=== PATIENT | male | born 1965 | race Native Hawaiian/Other Pacific Islander ===

== ENCOUNTER 2024-04-22 11:44 | Emergency (ER) | payer MEDICAID, SELFPAY ==
[2024-04-22 13:17] VITALS: BP 154/100; PULSE 98; RESP 18; TEMP 36.6; O2SAT 99
--- NOTE | 2024-04-22 13:48 | EKG_ITS ---
[facility] Test Date: 2024-04-22 Pat Name: KARISSA ISRAEL Department: Room: - Gender: Male Engineer Systems: : 1965 Requested By: Vijaya Molina Order Number: [id number] Reading MD: Vijaya Molina Measurements Intervals [place] Rate: 96 P: 57 ND: 201 QRS: -83 QRSD: 92 T: 79 QT: 368 QTc: 466 Interpretive Statements SINUS RHYTHM LEFT ATRIAL ENLARGEMENT [-0.15mV P WAVE IN V1/V2] MARKED LEFT AXIS DEVIATION [QRS AXIS < -30] S1-S2-S3 PATTERN, CONSISTENT WITH PULMONARY DISEASE, RVH, OR NORMAL VARIANT Compared to ECG 04/11/2023 16:56:05 Incomplete right bundle-branch block no longer present T-wave abnormality no longer present /store/S0/[id number]
--- NOTE | 2024-04-22 13:48 | XR_ITS ---
Examination: PA lateral chest 2 views TECHNIQUE: Upright PA lateral chest 2 views Exam date and time: April 22, 2024 1358 hours Comparison April 11, 2023 INDICATIONS: Difficulty breathing this week. FINDINGS: Early CHF Moderate retrocardiac contour Prominent vascular congestion Early septal edema at the lung bases IMPRESSION: Early CHF
--- NOTE | 2024-04-22 13:48 | XR_ITS ---
Examination: CT abdomen and pelvis without contrast. Coronal 3-D reconstructions. Sagittal 2-D reconstructions. Date and time of exam:April 22, 2024 1532 hours INDICATIONS: Body bloating one week, with swollen testicles CTDI: vol (mGy): 8.36 DLP: (mGycm): 4 Technique: Axial images of the abdomen have been obtained, 3 mm slice thickness Intravenous contrast material has not been administered. Low dose protocols were performed. One or more of the following dose reduction techniques were used; automated exposure control, adjustment of the mA and/or KV according to patient size, use of iterative reconstruction technique. Findings: Moderate enlargement cardiac contour Trace pericardial effusion, 5.6 mm anteriorly Pulmonary mass indistinct margins left lower lobe, 32 mm Liver irregular in contour with diffuse fatty infiltration Mild ascites No gallstones Gallbladder wall is thickened, but again the patient has ascites Spleen is not enlarged No pancreatic mass Moderate right renal parenchymal scar formation No hydronephrosis or ureteral calculi Normal appendix No bowel obstruction Anasarca Transverse prostate dimension 3.8 cm No bladder mass or bladder calculi Fat-containing right inguinal hernia Moderate osteopenia Mild to moderate diffuse lumbar disc narrowing IMPRESSION: Moderate enlargement cardiac contour with trace pericardial effusion 32 mm pulmonary mass left lower lobe, differential would include lung carcinoma, pulmonary metastatic disease consider CT chest without intravenous contrast follow-up Cirrhosis Mild ascites Anasarca Gallbladder wall is thickened which may be secondary to the patient's ascites Moderate right renal parenchymal scar formation Normal appendix No bowel junction
--- NOTE | 2024-04-22 13:48 | PD.EDRME ---
Rapid Medical Screening Exam [facility] Arrival date/time: 04/22/24 11:44 Chief Complaint: General Adult/Misc Complain Vital signs: Vital Signs Temperature 97.8 F 04/22/24 13:17 Pulse Rate 98 04/22/24 13:17 Respiratory Rate 18 04/22/24 13:17 Blood Pressure 154/100 H 04/22/24 13:17 Pulse Oximetry (%) 99 04/22/24 13:17 Oxygen Delivery Method Room Air 04/22/24 13:17 [facility] Narrative: 58-year-old patient with history of high blood pressure and CHF presents emergency department with complaint of swollen testicles, shortness of breath and bilateral lower leg swelling x 4 days. On physical exam there is pitting edema and swelling of lower legs from the foot to the thighs.
[2024-04-22 15:28] LABS: Basophils % (Auto) 1 % (0-2.5); Eosinophils # (Auto) 0.1 Thou/mm3 (0.0-0.5); Eosinophils % (Auto) 2 % (0-10); Hematocrit 48.8 % (41.0-53.0); Hemoglobin 15.5 g/dL (13.5-16.0); Immature Granulocytes % (Auto) 0 % (0-0); Lymphocytes # (Auto) 1.1 Thou/mm3 (1.0-4.8); Lymphocytes % (Auto) 34 % (10-50); Mean Corpuscular HGB Conc 31.8 g/dl (31.0-37.0); Mean Corpuscular Hemoglobin 30.1 pg (25.0-35.0); Mean Corpuscular Volume 95 fL (80-100); Monocytes # (Auto) 0.3 Thou/mm3 (0.0-0.8); Monocytes % (Auto) 10 % (0-12); Neutrophils # (Auto) 1.8 Thou/mm3 (1.8-7.7); Neutrophils % (Auto) 54 % (37-80); Nucleated Red Blood Cell % 0 /100 WBC (0); Platelet Count 181 Thou/mm3 (140-440); RDW Standard Deviation 58.1 fL (35.1-43.9); Red Blood Count 5.15 Miln/mm3 (4.50-5.90); White Blood Count 3.3 Thou/mm3 (3.8-10.6)
[2024-04-22 16:21] LABS: Alanine Aminotransferase 53 U/L (10-49); Albumin, Serum 3.4 gm/dL (3.5-5.0); Albumin/Globulin Ratio 0.8 (1.2-2.2); Alkaline Phosphatase 218 U/L (46-116); Anion Gap 10 (7-16); Aspartate Amino Transferase 58 U/L (0-34); B-Type Natriuretic Peptide 2935 pg/mL (0-100); BUN/Creatinine Ratio 18 Ratio (12-20); Blood Urea Nitrogen 33 mg/dL (9-23); Calcium 8.3 mg/dL (8.3-10.6); Calcium (Corrected) 8.8 mg/dL (8.5-10.1); Carbon Dioxide 18.6 mMol/L (20.0-31.0); Chloride 111 mMol/L (98-107); Creatinine (Component) 1.8 mg/dL (0.6-1.3); Globulin 4.3 gm/dL (2.3-3.5); Glucose 86 mg/dL (74-106); Lipase 121 U/L (12-53); Osmolality,Calculated 285 (275-295); Potassium 4.6 mMol/L (3.4-5.1); Sodium 140 mMol/L (136-145); Total Protein 7.7 gm/dL (5.7-8.2); eGFR 43 See Note
[2024-04-22 16:23] LABS: Troponin I 0.196 ng/mL (0.0-0.045)
--- NOTE | 2024-04-22 18:51 | PC.NURSE ---
PT CAME TO TRIAGE DESK AND YELLED AT THE NURSE, I'M CHECKING OUT AND LEAVING. I'VE BEEN WAITING ALL DAY AND NO ONE IS DOING ANYTHING. APOLOGIZED TO PT FOR THE WAIT. PT WANTING NURSE TO PRESCRIBE LASIX PILLS, AND PT INFORMED THAT THE PROVIDER WOULD HAVE TO PRESCRIBE ANY MEDICATION AND THEY WONT BE ABLE TO DO THAT IF HE LEAVES. PT SIGNED AMA FORM AND WALKED OUT
== END 2024-04-22 18:51 | disposition left against medical advice (07) ==
LOC: SERX 12:41
PROVIDERS: Physician Assistant; Emergency Provider Emergency Medicine
DX: N50.89 Other specified disorders of the male genital organs (principal); R06.02 Shortness of breath; M79.89 Other specified soft tissue disorders; R94.31 Abnormal electrocardiogram [ECG] [EKG]; I50.9 Heart failure, unspecified; Z53.29 Procedure and treatment not carried out because of patient's decision for other reasons
CPT/HCPCS: 36415; 71046; 74176; 80053; 83690; 83880; 84484; 85025; 93005; 99281

== ENCOUNTER 2024-04-23 03:55 | Emergency (ER) | payer MEDICAID, SELFPAY ==
[2024-04-23 03:58] VITALS: BMI 26.7
[2024-04-23 04:33] VITALS: BP 141/96; PULSE 76; RESP 19; TEMP 36.9; O2SAT 97
--- NOTE | 2024-04-23 04:35 | PD.EDRME ---
Rapid Medical Screening Exam RME Arrival date/time: 04/23/24 03:55 58 year old male present to Ed for c/o of lower leg swelling I have greeted and performed a focused initial assessment of this patient. A comprehensive ED assessment and evaluation of the patient, analysis of all test results, and completion of the medical decision making process will be conducted by additional ED providers. Chief Complaint: Urogenital-Male Time Seen by Provider: 04/23/24 03:58 Vital signs: Vital Signs Temperature 98.4 F 04/23/24 04:33 Pulse Rate 76 04/23/24 04:33 Respiratory Rate 19 04/23/24 04:33 Blood Pressure 141/96 H 04/23/24 04:33 Pulse Oximetry (%) 97 04/23/24 04:33 Oxygen Delivery Method Room Air 04/23/24 04:33
--- NOTE | 2024-04-23 08:07 | XR_ITS ---
Examination: PA chest single view TECHNIQUE: Upright PA chest single view Exam date and time: April 23, 2022 0830 hours Comparison April 22, 2024 INDICATIONS: Chest pain today unable to urinate FINDINGS: Moderate enlargement cardiac contour Opacity left base obscuring detail left hemidiaphragm Mild to moderate vascular congestion The osseous structures are intact IMPRESSION: Moderate enlargement cardiac contour Scarring versus pneumonia left base, recommend lateral chest view follow-up
--- NOTE | 2024-04-23 08:07 | EKG_ITS ---
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
[2024-04-23 08:30] VITALS: BP 150/103; PULSE 93; RESP 20; TEMP 36.6; O2SAT 99
[2024-04-23 08:50] LABS: Basophils % (Auto) 1 % (0-2.5); Eosinophils # (Auto) 0.1 Thou/mm3 (0.0-0.5); Eosinophils % (Auto) 3 % (0-10); Hematocrit 45.1 % (41.0-53.0); Hemoglobin 14.2 g/dL (13.5-16.0); Immature Granulocytes % (Auto) 0 % (0-0); Immature Granulocytes Auto 0.01 Thou/mm3 (0.00-0.00); Lymphocytes # (Auto) 0.8 Thou/mm3 (1.0-4.8); Lymphocytes % (Auto) 28 % (10-50); Mean Corpuscular HGB Conc 31.5 g/dl (31.0-37.0); Mean Corpuscular Hemoglobin 30.3 pg (25.0-35.0); Mean Corpuscular Volume 96 fL (80-100); Monocytes # (Auto) 0.3 Thou/mm3 (0.0-0.8); Monocytes % (Auto) 11 % (0-12); Neutrophils # (Auto) 1.7 Thou/mm3 (1.8-7.7); Neutrophils % (Auto) 56 % (37-80); Nucleated Red Blood Cell % 0 /100 WBC (0); Platelet Count 169 Thou/mm3 (140-440); RDW Standard Deviation 59.7 fL (35.1-43.9); Red Blood Count 4.68 Miln/mm3 (4.50-5.90)
[2024-04-23 08:54] LABS: B-Type Natriuretic Peptide > 3280 pg/mL (0-100)
[2024-04-23 08:58] LABS: Partial Thromboplastin Time 28.3 Seconds (22.0-36.0)
[2024-04-23 09:01] LABS: Alanine Aminotransferase 61 U/L (10-49); Albumin, Serum 3.1 gm/dL (3.5-5.0); Albumin/Globulin Ratio 0.8 (1.2-2.2); Alkaline Phosphatase 210 U/L (46-116); Anion Gap 7 (7-16); Aspartate Amino Transferase 73 U/L (0-34); BUN/Creatinine Ratio 17 Ratio (12-20); Bilirubin,Total 0.7 mg/dL (0.3-1.2); Blood Urea Nitrogen 31 mg/dL (9-23); Calcium 8.3 mg/dL (8.3-10.6); Carbon Dioxide 20.5 mMol/L (20.0-31.0); Chloride 114 mMol/L (98-107); Creatinine (Component) 1.8 mg/dL (0.6-1.3); Estimated Creatinine Clearance 43.3 mL/min (>60); Globulin 3.8 gm/dL (2.3-3.5); Glucose 81 mg/dL (74-106); Lipase 142 U/L (12-53); Magnesium 1.9 mg/dL (1.6-2.6); Osmolality,Calculated 286 (275-295); Potassium 4.6 mMol/L (3.4-5.1); Sodium 141 mMol/L (136-145); Total Protein 6.9 gm/dL (5.7-8.2); eGFR 43 See Note
[2024-04-23 09:02] LABS: Troponin I 0.159 ng/mL (0.0-0.045)
[2024-04-23 09:43] VITALS: BP 146/104; PULSE 81
[2024-04-23] MEDS: FUROSEMIDE INJ 10 MG/ML 4ML VIAL 40 MG IVP (09:43)
--- NOTE | 2024-04-23 13:00 | EDNOTE_ITS ---
<Statement entered by Yamila Veliz MD - 04/30/24 14:47> As co-signing physician, I was present and available for consult prn. I concur with the plan and care as documented by the midlevel provider. ED General RME/HPI General Chief complaint: Urogenital-Male Stated complaint: bloated history of CHF Time Seen by Provider: 04/23/24 03:58 Arrival date/time: 04/23/24 03:55 CC: Lower extremity swelling HPI ongoing for the past month after the patient stopped taking his Lasix because he not get his insurance to approve the renewal and did not have the money to pay for the drugs out right. Patient denies any shortness of breath. At the time of the exam at 1 PM in the afternoon the patient been here at 8 hours after being given IV Lasix the patient states he is peeing a gallon . The patient states he feels much better. Denies any chest pain shortness of breath or difficulty breathing. RME / HPI RME / HPI narrative: 04/23/24 03:55 58 year old male present to Ed for c/o of lower leg swelling I have greeted and performed a focused initial assessment of this patient. A comprehensive ED assessment and evaluation of the patient, analysis of all test results, and completion of the medical decision making process will be conducted by additional ED providers. Related Data Home Medications ?Medication ?Instructions ?Recorded ?Confirmed abacavir 600 mg-dolutegravir 50 1 tab PO QDAY 10/17/22 10/18/22 mg-lamivudine 300 mg tablet (Triumeq) albuterol sulfate 2.5 mg/3 mL 2.5 mg inhalation Q6H PRN 10/17/22 10/18/22 (0.083 %) solution for nebulization Shortness Of Breath Previous Rx's ?Medication ?Instructions ?Recorded carvedilol 3.125 mg tablet 3.125 mg PO BID #60 tabs 10/20/22 spironolactone 25 mg tablet 25 mg PO BID #60 tabs 10/20/22 tamsulosin 0.4 mg capsule 0.4 mg PO QDAY #30 caps 10/20/22 furosemide 40 mg tablet 40 mg PO QDAY #30 tabs 10/21/22 furosemide 40 mg tablet (Lasix) 40 mg PO QAM #30 tabs 04/23/24 potassium chloride 10 mEq oral 10 meq PO QDAY #15 ea 04/23/24 packet Allergies Allergy/AdvReac Type Severity Reaction Status Date / Time No Known Allergies Allergy Verified 04/22/24 11:45 Review of Systems Review of Systems Narrative Review of Systems: GEN: No fever, no chills, no weight loss EYES: No discharge, no visual changes, no pain HEENT: No ear pain, no congestion, no sore throat PULM: No shortness of breath, no cough, no congestion CV: No chest pain, no dyspnea on exertion, no palpitations GI: No nausea, no vomiting, no diarrhea, no pain, no constipation : No frequency, no urgency, no dysuria MUSC/SKEL: No joint pain, no back pain,+ lower extremity edema SKIN: No rash PSYCH: No hallucinations, no depression HEME/LYMPH: No easy bleeding or bruising tendencies NEURO: No weakness, no headache Past Medical History Past Medical History NEUROLOGIC: Positive Neurological Disorders and Migraine CARDIAC: Positive Cardiac Disorders, Congestive Heart Failure (2022 new diagnosis) and Hypertension RESPIRATORY: Positive Asthma (mild) and Pneumonia; Negative Chronic Obstructive Pulmonary Disease (COPD) GASTROINTESTINAL: Positive Gastrointestinal Disorders and Gastroesophageal Reflux Disease GENITOURINARY: Positive Genitourinary Disorders and Benign Prostatic Hyperplasia; Negative Renal Disease MUSCULOSKELETAL: Positive Musculoskeletal Disorders ENDOCRINE: Negative Endocrine Disorders, Diabetes Mellitus Type 1 or Diabetes Mellitus Type 2 HEMATOLOGIC: Negative Blood Disorders PSYCHO/SOCIAL: Positive Depression OTHER HISTORY: Positive Autoimmune Disease and Human Immunodeficiency Virus (HIV); Negative Cancer Family History FAMILY HISTORY: Positive Family Psychiatric Problems (brother), Family Respiratory Disorders, Family Cardiac Disorders (htn, heart disease), Family Cancer (lung cancer, father, brother) and Family Surgery; Negative Family Gastrointestinal Problems or Family Anesthesia Reaction Social History SMOKING STATUS: Former smoker SUBSTANCE USE: marijuana and methamphetamine ED Exam Narrative Physical exam: [General: Obese not in any acute distress Head normocephalic HEENT: Within acceptable limits Neck is supple nontender Chest equal chest rise nontender to palpation Respiratory: Clear to auscultation no wheezes crackles or rubs CV: Rate rhythm is regular no murmurs rubs or clicks Abdomen is distended secondary to body habitus soft nontender no masses positive bowel sounds all 4 quadrants Back: No CVA tenderness no spinous process tenderness from cervical spine thoracic and lumbar spine Skin: Intact no petechiae rash induration ulceration or crepitus Extremities: Moving all extremity against resistance cap refill less than 2 seconds neurosensory intact. Lower extremity edema nonpitting, no tenderness in the calves. Neuro: Awake alert oriented x3 Glascow coma 15 no focal deficits] Course Quality Measures none Orders Category Date Time Status Multi Operation Machine Operator NOW Care 04/23/24 08:07 Active Catheter [Urinary Catheter] QS Care 04/23/24 04:36 Active EKG (ED ONLY) *Do not use* NOW Care 04/23/24 08:07 Completed Insert IV NOW Care 04/23/24 09:39 Active EKG (ED Only) Stat Exams 04/23/24 08:07 Draft XR chest 1V portable Stat Exams 04/23/24 08:07 Completed B-Type Natriuretic Peptide Stat Lab 04/23/24 07:24 Completed CBC Stat Lab 04/23/24 07:24 Completed Comprehensive Metabolic Panel Stat Lab 04/23/24 07:24 Completed Lipase Stat Lab 04/23/24 07:24 Completed Magnesium Stat Lab 04/23/24 07:24 Completed Partial Thromboplastin Time Stat Lab 04/23/24 07:24 Completed Prothrombin Time with INR Stat Lab 04/23/24 07:24 Completed Troponin I Stat Lab 04/23/24 07:24 Completed Furosemide Inj [Lasix Inj] Med 04/23/24 04:36 Discontinued 40 mg IVP X1 ONE KCL 10% Liq UDC 15 ML Med 04/23/24 12:48 Discontinued 40 meq GT X1 ONE KCL 10% Liq UDC 15 ML Med 04/23/24 12:48 Discontinued 40 meq GT X1 ONE Vital Signs Vital signs: Vital Signs Temperature 98.4 F 04/23/24 04:33 Pulse Rate 76 04/23/24 04:33 Respiratory Rate 19 04/23/24 04:33 Blood Pressure 141/96 H 04/23/24 04:33 Pulse Oximetry (%) 97 04/23/24 04:33 Oxygen Delivery Method Room Air 04/23/24 04:33 [facility] Patient data External records reviewed:: [facility] previous records Clinical information provided by:: patient Social determinants that could affect healthcare access:: none Patient has the following chronic illnesses:: Congestive heart failure hypertension How is presenting disease/condition affected by chronic disease/condition?: u neffected by Evaluation data The following diagnostics were reviewed and interpreted by me:: lab results and radiology exam(s) Lab and/or radiology exams considered but not ordered:: CBC shows no acute leukocytosis anemia thrombocytopenia Coags were within acceptable limits CMP shows a potassium of 3.0 no other significant electrolyte imbalances BUN of 30 and 1 creatinine of 1.8 both commensurate with prior lab draws. No significant lecture light imbalances or renal impairment. Mild transaminitis Troponin of 0.159 commiserate with other troponins drawn in the past, BNP is greater than 30-50 again commensurate with other BMPs. Interpretation Summary: Patient is ambulating without complication no shortness of breath normal respiration rate normal heart rate and stable blood pressure. At this time patient be discharged home with a short refill of his prednisone as well as a prescription for potassium. Medications Medications considered but not ordered:: None Medication administrations:: Medication Administration History Discontinued Medications Furosemide (Furosemide Inj 10 Mg/Ml 4ml Vial) 40 mg IVP X1 ONE Stop: 04/23/24 04:37 Last Admin: 04/23/24 09:43 Dose: 40 mg Documented By: DB Potassium Chloride (Potassium Chloride 10% 20 Meq/15 Ml Udc) 40 meq GT X1 ONE Stop: 04/23/24 12:49 Potassium Chloride (Potassium Chloride 10% 20 Meq/15 Ml Udc) 40 meq GT X1 ONE Stop: 04/23/24 12:49 None Consultations Consultation(s) initiated? (list below): No Diagnosis Differential Diagnosis ED Complaint MDM: CHF COPD ACS [place] Most likely diagnosis given after review of the tests above:: CHF, medication noncompliance lower extremity edema Admission Indicated Admission indicated?: not indicated Explain why admission is indicated or not indicated:: Stable to discharge Admission Request Was there a request for admission?: No Disposition Plan Disposition Plan: Discharge Discharge Attestation Discharge Attestation: The patient and all family members were given an opportunity to ask questions and understood the discharge instructions. Discharge instructions specifically effects, indications for sooner follow up or return to the emergency department, and the expected course of current diagnosis. Patient condition: Stable Medical Decision Making Differential Diagnosis Differential Diagnosis: CHF COPD ACS [place] Lab Data 04/23/24 07:24 04/23/24 07:24 Labs: Lab Results 04/23/24 Range/Units 07:24 WBC 3.0 L (3.8-10.6) Thou/mm3 RBC 4.68 (4.50-5.90) Miln/mm3 Hgb 14.2 (13.5-16.0) g/dL Hct 45.1 (41.0-53.0) % MCV 96 (80-100) fL MCH 30.3 (25.0-35.0) pg MCHC 31.5 (31.0-37.0) g/dl RDW Std Deviation 59.7 H (35.1-43.9) fL Plt Count 169 (140-440) Thou/mm3 Neut % (Auto) 56 (37-80) % Lymph % (Auto) 28 (10-50) % Ritchie % (Auto) 11 (0-12) % Eos % (Auto) 3 (0-10) % Baso % (Auto) 1 (0-2.5) % Neut # (Auto) 1.7 L (1.8-7.7) Thou/mm3 Lymph # (Auto) 0.8 L (1.0-4.8) Thou/mm3 Ritchie # (Auto) 0.3 (0.0-0.8) Thou/mm3 Eos # (Auto) 0.1 (0.0-0.5) Thou/mm3 Baso # (Auto) 0.0 (0.0-0.2) Thou/mm3 Immature Gran # (Auto) 0.01 H (0.00-0.00) Thou/mm3 Absolute Nucleated RBC 0.00 (0.00-0.00) Thou/mm3 Immature Gran % 0 (0-0) % Nucleated RBC % 0 (0) /100 WBC PT 11.0 (9.0-12.2) Seconds INR 1.0 (0.9-1.3) APTT 28.3 (22.0-36.0) Seconds Sodium 141 (136-145) mMol/L Potassium 4.6 (3.4-5.1) mMol/L Chloride 114 H (98-107) mMol/L Carbon Dioxide 20.5 (20.0-31.0) mMol/L Anion Gap 7 (7-16) BUN 31 H (9-23) mg/dL Creatinine 1.8 H (0.6-1.3) mg/dL Estim Creat Clear Calc 43.3 L (>60) mL/min eGFR 43 L (60 - ) See Note BUN/Creatinine Ratio 17 (12-20) Ratio Glucose 81 (74-106) mg/dL Calculated Osmolality 286 (275-295) Calcium 8.3 (8.3-10.6) mg/dL Corrected Calcium 9.0 (8.5-10.1) mg/dL Magnesium 1.9 (1.6-2.6) mg/dL Total Bilirubin 0.7 (0.3-1.2) mg/dL AST 73 H (0-34) U/L ALT 61 H (10-49) U/L Alkaline Phosphatase 210 H (46-116) U/L Troponin I 0.159 H* (0.0-0.045) ng/mL B-Natriuretic Peptide > 3280 H* (0-100) pg/mL Total Protein 6.9 (5.7-8.2) gm/dL Albumin 3.1 L (3.5-5.0) gm/dL Globulin 3.8 H (2.3-3.5) gm/dL Albumin/Globulin Ratio 0.8 L (1.2-2.2) Lipase 142 H D (12-53) U/L Discharge Plan Plan Patient Disposition: HOME (Self Care) Patient condition on transfer: Stable Prescriptions/Referrals Prescriptions/Med Rec: New furosemide [Lasix] 40 mg tablet 40 mg PO QAM Qty: 30 1RF potassium chloride 10 mEq packet 10 meq PO QDAY Qty: 15 0RF No Action Triumeq 600-50-300 mg Tablet 1 tab PO QDAY albuterol sulfate 2.5 mg /3 mL (0.083 %) Solution For Nebulization 2.5 mg INHALATION Q6H PRN (Reason: Shortness Of Breath) spironolactone 25 mg Tablet 25 mg PO BID Qty: 60 0RF carvedilol 3.125 mg Tablet 3.125 mg PO BID Qty: 60 1RF tamsulosin 0.4 mg Capsule 0.4 mg PO QDAY Qty: 30 0RF furosemide 40 mg Tablet 40 mg PO QDAY Qty: 30 0RF Referrals: Srikanth Barcenas MD [Physician] - In 1 week No Primary/Family,Physician [Primary Care Provider] - In 1 week Problem List Clinical Impression: Bilateral lower extremity edema, CHF (congestive heart failure), Hypokalemia Patient/Caregiver Discharge Instructions Education Materials: ED Hypokalemia, ED Leg Swelling in Both Legs, Heart Failure Dc Additional Instructions: Take your medications as prescribed. Return to the emergency room if there is worsening shortness of breath or leg swelling in spite of the medications. Print Language: Italian Stand Alone Forms: [employer] Award Info., Patient Portal Info Letter, Work/School Release PA/YARN CONDITIONER Supervising Physician PA/YARN CONDITIONER Supervising Physician: Jose A Mata ENP
[2024-04-23] MEDS: POTASSIUM CHLORIDE 10% 20 MEQ/15 ML UDC 40 MEQ GT ×2 (13:47)
== END 2024-04-23 14:15 | disposition home or self-care (01) ==
PROVIDERS: Emergency Medicine; Emergency Provider Emergency Medicine
DX: R60.0 Localized edema (principal); I50.9 Heart failure, unspecified
CPT/HCPCS: 36415; 71045; 80053; 83690; 83735; 83880; 84484; 85025; 85610; 85730; 93005; 96374; 99284; J1940; A9270

== ENCOUNTER 2024-06-03 14:31 | Emergency (ER) | payer MEDICAID, SELFPAY ==
[2024-06-03 14:31] VITALS: BMI 23.6
[2024-06-03 14:37] VITALS: BP 157/89; PULSE 109; RESP 18; TEMP 37; O2SAT 96
--- NOTE | 2024-06-03 14:45 | PD.EDRME ---
Rapid Medical Screening [facility]am [facility] Arrival date/time: 06/03/24 14:31 58-year-old male with a history of HIV presents to the emergency room with a chief complaint of a rash to his lower back. Patient was seen at his primary care provider's office and was diagnosed with shingles and medication was sent to his pharmacy. Primary care provider's office sent him to the emergency room due to his low-grade fever. Patient also states he has not had lab work in over a year and states he was sent for an HIV viral load test. I have greeted and performed a focused initial assessment of this patient. A comprehensive ED assessment and evaluation of the patient, analysis of all test results, and completion of the medical decision making process will be conducted by additional ED providers. Chief Complaint: Skin/Abscess/Foreign Body Time Seen by Provider: 06/03/24 14:37 Vital signs: Vital Signs Temperature 98.6 F 06/03/24 14:37 Pulse Rate 109 H 06/03/24 14:37 Respiratory Rate 18 06/03/24 14:37 Blood Pressure 157/89 H 06/03/24 14:37 Pulse Oximetry (%) 96 06/03/24 14:37 Oxygen Delivery Method Room Air 06/03/24 14:37 Vital signs reviewed by provider: Yes
[2024-06-03 15:17] LABS: Basophils % (Auto) 1 % (0-2.5); Eosinophils % (Auto) 1 % (0-10); Hematocrit 42.1 % (41.0-53.0); Hemoglobin 14.1 g/dL (13.5-16.0); Immature Granulocytes % (Auto) 1 % (0-0); Immature Granulocytes Auto 0.02 Thou/mm3 (0.00-0.00); Lymphocytes # (Auto) 1.3 Thou/mm3 (1.0-4.8); Lymphocytes % (Auto) 32 % (10-50); Mean Corpuscular HGB Conc 33.5 g/dl (31.0-37.0); Mean Corpuscular Volume 90 fL (80-100); Monocytes # (Auto) 0.6 Thou/mm3 (0.0-0.8); Monocytes % (Auto) 13 % (0-12); Neutrophils # (Auto) 2.2 Thou/mm3 (1.8-7.7); Neutrophils % (Auto) 53 % (37-80); Nucleated Red Blood Cell % 0 /100 WBC (0); Platelet Count 188 Thou/mm3 (140-440); RDW Standard Deviation 49.1 fL (35.1-43.9); White Blood Count 4.1 Thou/mm3 (3.8-10.6)
[2024-06-03 15:37] LABS: Alanine Aminotransferase 54 U/L (10-49); Albumin, Serum 3.5 gm/dL (3.5-5.0); Albumin/Globulin Ratio 0.9 (1.2-2.2); Alkaline Phosphatase 165 U/L (46-116); Anion Gap 9 (7-16); Aspartate Amino Transferase 51 U/L (0-34); BUN/Creatinine Ratio 16 Ratio (12-20); Bilirubin,Total 0.7 mg/dL (0.3-1.2); Blood Urea Nitrogen 28 mg/dL (9-23); Calcium 8.6 mg/dL (8.3-10.6); Carbon Dioxide 23.1 mMol/L (20.0-31.0); Chloride 103 mMol/L (98-107); Creatinine (Component) 1.8 mg/dL (0.6-1.3); Estimated Creatinine Clearance 43.3 mL/min (>60); Glucose 113 mg/dL (74-106); Osmolality,Calculated 276 (275-295); Potassium 3.7 mMol/L (3.4-5.1); Sodium 135 mMol/L (136-145); Total Protein 7.5 gm/dL (5.7-8.2); eGFR 43 See Note
[2024-06-03 16:11] LABS: Partial Thromboplastin Time 30.7 Seconds (22.0-36.0); Prothrombin Time 10.7 Seconds (9.0-12.2)
[2024-06-03 16:32] LABS: Collection Type, Urine Clean Catch; Squamous Epithelial Cell,Urine 0 /hpf (0-5)
[2024-06-03 16:41] LABS: Bilirubin,Urine Negative (Negative); Blood,Urine 1+ (Negative); Clarity,Urine Clear (Clear/Hazy); Color,Urine Yellow (Lt Yel-Yel); Culture Indicated,Urine Not Indicated; Glucose, Urine Negative (Negative); Ketones,Urine Negative (Negative); Leukocyte Esterase,Urine Negative (Negative); Nitrite,Urine Negative (Negative); PH,Urine 6.5 (5.0-7.0); Protein,Urine 3+ (Neg - Trace); RBC,Urine 8 /hpf (0-3); Specific Gravity,Urine 1.018 (1.001-1.035); Urobilinogen,Urine Negative mg/dL (0.0-1.0); WBC,Urine 2 /hpf (0-5)
--- NOTE | 2024-06-03 17:17 | EDNOTE_ITS ---
ED General RME/HPI General Chief complaint: Skin/Abscess/Foreign Body Stated complaint: RASH TO ABD AREA, R/O SHINGLES Time Seen by Provider: 06/03/24 14:37 Arrival date/time: 06/03/24 14:31 RME / HPI RME / HPI narrative: 06/03/24 14:31 58-year-old male with a history of HIV presents to the emergency room with a chief complaint of a rash to his lower back. Patient was seen at his primary care provider's office and was diagnosed with shingles and medication was sent to his pharmacy. Primary care provider's office sent him to the emergency room due to his low-grade fever. Patient also states he has not had lab work in over a year and states he was sent for an HIV viral load test. I have greeted and performed a focused initial assessment of this patient. A comprehensive ED assessment and evaluation of the patient, analysis of all test results, and completion of the medical decision making process will be conducted by additional ED providers. DR. BUCIO MAIN ED EVALUATION 58 year old male presents to the ED sent by PCP for evaluation of fever and rash to his lower back. Reports the rash began several days ago that is accompanied by pain. Reportedly consulted with PCP today who diagnosed him with shingles and prescribed antivirals. However, because of the fever was advised to come for further evaluation. Denies sweating. Denies chest pain, cough, shortness of breath. Denies nausea, vomiting, diarrhea, constipation. Denies dysuria, urinary frequency and urgency. Related Data Previous Rx's ?Medication ?Instructions ?Recorded furosemide 40 mg tablet (Lasix) 40 mg PO QAM #30 tabs 04/23/24 gabapentin 300 mg capsule 300 mg PO BID 30 days #60 ca ps 06/03/24 prednisone 50 mg tablet 50 mg PO QDAY 5 days #5 tabs 06/03/24 valacyclovir 1 gram tablet 1,000 mg PO Q8H 10 days #30 tabs 06/03/24 Allergies Allergy/AdvReac Type Severity Reaction Status Date / Time No Known Allergies Allergy Verified 06/03/24 14:33 Review of Systems Review of Systems Narrative Review of Systems: GEN: + fever, no chills, no weight loss EYES: No discharge, no visual changes, no pain HEENT: No ear pain, no congestion, no sore throat PULM: No shortness of breath, no cough, no congestion CV: No chest pain, no dyspnea on exertion, no palpitations GI: No nausea, no vomiting, no diarrhea, no pain, no constipation : No frequency, no urgency, no dysuria MUSC/SKEL: No joint pain, no back pain SKIN: + rash with pain PSYCH: No hallucinations, no depression HEME/LYMPH: No easy bleeding or bruising tendencies NEURO: No weakness, no headache Past Medical History Past Medical History NEUROLOGIC: Positive Neurological Disorders and Migraine CARDIAC: Positive Cardiac Disorders, Congestive Heart Failure and Hypertension RESPIRATORY: Positive Asthma and Pneumonia; Negative Chronic Obstructive Pulmonary Disease (COPD) GASTROINTESTINAL: Positive Gastrointestinal Disorders and Gastroesophageal Reflux Disease GENITOURINARY: Positive Genitourinary Disorders and Benign Prostatic Hyperplasia; Negative Renal Disease MUSCULOSKELETAL: Positive Musculoskeletal Disorders ENDOCRINE: Negative Endocrine Disorders, Diabetes Mellitus Type 1 or Diabetes Mellitus Type 2 HEMATOLOGIC: Negative Blood Disorders PSYCHO/SOCIAL: Positive Depression OTHER HISTORY: Positive Autoimmune Disease and Human Immunodeficiency Virus (HIV); Negative Cancer Family History FAMILY HISTORY: Positive Family Psychiatric Problems, Family Respiratory Disorders, Family Cardiac Disorders, Family Cancer (lung cancer, father, brother) and Family Surgery; Negative Family Gastrointestinal Problems or Family Anesthesia Reaction Social History SMOKING STATUS: Never smoker SECOND HAND EXPOSURE: No SUBSTANCE USE: marijuana and methamphetamine ED Exam Narrative Physical exam: GENERAL APPEARANCE:? alert and oriented x 4, well-developed, well-nourished, no acute distress HEENT: normocephalic, atraumatic NECK: supple LUNGS: no respiratory distress, normal effort HEART: good peripheral perfusion ABDOMEN: non distended EXTREMITIES:? atraumatic NEUROLOGIC: awake; alert and oriented x4; cranial nerves II-XII grossly intact PSYCHIATRIC:? appropriate mood and affect SKIN: warm, dry, normal color; no rashes Course Quality Measures none Orders Category Date Time Status CBC [CBC] Stat Lab 06/03/24 15:06 Completed CMP [Comprehensive Metabolic Panel] Stat Lab 06/03/24 15:06 Completed PT [Prothrombin Time with INR] Stat Lab 06/03/24 15:06 Completed PTT [Partial Thromboplastin Time] Stat Lab 06/03/24 15:06 Completed UA [Urinalysis] Stat Lab 06/03/24 15:32 Completed UA, C/S IF [Urinalysis, C/S if Indicated] Stat Lab 06/03/24 15:32 Completed Vital Signs Vital signs: Vital Signs Temperature 98.6 F 06/03/24 14:37 Pulse Rate 109 H 06/03/24 14:37 Respiratory Rate 18 06/03/24 14:37 Blood Pressure 157/89 H 06/03/24 14:37 Pulse Oximetry (%) 96 06/03/24 14:37 Oxygen Delivery Method Room Air 06/03/24 14:37 Pulse ox is 96% on room air which is adequate. [facility] Patient data External records reviewed:: [facility] previous records (I reviewed ED visit on 04/23/2024) Clinical information provided by:: patient Social determinants that could affect healthcare access:: none Patient has the following chronic illnesses:: HTN How is presenting disease/condition affected by chronic disease/condition?: u neffected by Evaluation data The following diagnostics were reviewed and interpreted by me:: lab results Lab and/or radiology exams considered but not ordered:: None Interpretation Summary: CBC within normal limits Medications Medications considered but not ordered:: None Medication administrations:: None Consultations Consultation(s) initiated? (list below): No Diagnosis Differential Diagnosis ED Complaint MDM: Rash, Shingles, viral illness, cellulitis Most likely diagnosis given after review of the tests above:: Shingles Hx of HIV infection Admission Indicated Admission indicated?: not indicated Explain why admission is indicated or not indicated:: Does not meet admission criteria Admission Request Was there a request for admission?: No Disposition Plan Disposition Plan: Discharge Discharge Attestation Discharge Attestation: The patient and all family members were given an opportunity to ask questions and understood the discharge instructions. Discharge instructions specifically effects, indications for sooner follow up or return to the emergency department, and the expected course of current diagnosis. Patient condition: Stable Medical Decision Making Differential Diagnosis Differential Diagnosis: Rash, Shingles, viral illness, cellulitis Lab Data 06/03/24 15:06 06/03/24 15:06 Labs: Lab Results 06/03/24 06/03/24 Range/Units 15:06 15:32 WBC 4.1 (3.8-10.6) Thou/mm3 RBC 4.70 (4.50-5.90) Miln/mm3 Hgb 14.1 (13.5-16.0) g/dL Hct 42.1 (41.0-53.0) % MCV 90 (80-100) fL MCH 30.0 (25.0-35.0) pg MCHC 33.5 (31.0-37.0) g/dl RDW Std Deviation 49.1 H (35.1-43.9) fL Plt Count 188 (140-440) Thou/mm3 Neut % (Auto) 53 (37-80) % Lymph % (Auto) 32 (10-50) % [place] % (Auto) 13 H (0-12) % Eos % (Auto) 1 (0-10) % Baso % (Auto) 1 (0-2.5) % Neut # (Auto) 2.2 (1.8-7.7) Thou/mm3 Lymph # (Auto) 1.3 (1.0-4.8) Thou/mm3 [place] # (Auto) 0.6 (0.0-0.8) Thou/mm3 Eos # (Auto) 0.0 (0.0-0.5) Thou/mm3 Baso # (Auto) 0.0 (0.0-0.2) Thou/mm3 Immature Gran # (Auto) 0.02 H (0.00-0.00) Thou/mm3 Absolute Nucleated RBC 0.00 (0.00-0.00) Thou/mm3 Immature Gran % 1 H (0-0) % Nucleated RBC % 0 (0) /100 WBC PT 10.7 (9.0-12.2) Seconds INR 1.0 (0.9-1.3) APTT 30.7 (22.0-36.0) Seconds Sodium 135 L (136-145) mMol/L Potassium 3.7 (3.4-5.1) mMol/L Chloride 103 (98-107) mMol/L Carbon Dioxide 23.1 (20.0-31.0) mMol/L Anion Gap 9 (7-16) BUN 28 H (9-23) mg/dL Creatinine 1.8 H (0.6-1.3) mg/dL Estim Creat Clear Calc 43.3 L (>60) mL/min eGFR 43 L (60 - ) See Note BUN/Creatinine Ratio 16 (12-20) Ratio Glucose 113 H (74-106) mg/dL Calculated Osmolality 276 (275-295) Calcium 8.6 (8.3-10.6) mg/dL Corrected Calcium 9.0 (8.5-10.1) mg/dL Total Bilirubin 0.7 (0.3-1.2) mg/dL AST 51 H (0-34) U/L ALT 54 H (10-49) U/L Alkaline Phosphatase 165 H (46-116) U/L Total Protein 7.5 (5.7-8.2) gm/dL Albumin 3.5 (3.5-5.0) gm/dL Globulin 4.0 H (2.3-3.5) gm/dL Albumin/Globulin Ratio 0.9 L (1.2-2.2) Ur Collection Type Clean Catch Urine Color Yellow (Lt Yel-Yel) Urine Clarity Clear (Clear/Hazy) Urine pH 6.5 (5.0-7.0) Ur Specific [place] 1.018 (1.001-1.035) Urine Protein 3+ A (Neg - Trace) Urine Glucose (UA) Negative (Negative) Urine Ketones Negative (Negative) Urine Blood 1+ A (Negative) Urine Nitrite Negative (Negative) Urine Bilirubin Negative (Negative) Urine Urobilinogen (Auto) Negative (0.0-1.0) mg/dL Ur Leukocyte Esterase Negative (Negative) Urine RBC 8 H (0-3) /hpf Urine WBC 2 (0-5) /hpf Ur Squamous Epith Cells 0 (0-5) /hpf Urine Bacteria None (None) Ur Culture Indicated? Not Indicated Discharge Plan Plan Patient Disposition: HOME (Self Care) Prescriptions/Referrals Prescriptions/Med Rec: No Action prednisone 50 mg tablet 50 mg PO QDAY 5 Days Qty: 5 0RF gabapentin 300 mg capsule 300 mg PO BID 30 Days Qty: 60 0RF valacyclovir 1 gram tablet 1,000 mg PO Q8H 10 Days Qty: 30 0RF furosemide [Lasix] 40 mg tablet 40 mg PO QAM Qty: 30 1RF Referrals: [facility],Anel Crooks NP [Primary Care Provider] - In 1 week Problem List Clinical Impression: Shingles, History of HIV infection Patient/Caregiver Discharge Instructions Education Materials: CD4-CD8 Ratio, ED Shingles (Herpes Zoster) Additional Instructions: Your complete blood count today shows a normal number of white blood cells called lymphocytes. This indicates that your CD4 count is also within normal limits and you do not currently have signs of severe immunocompromise. Print Language: Beninese Stand Alone Forms: Vinny., Patient Portal Info Letter
[2024-06-06 17:50] LABS: HIV-1 RNA, QN PCR 31700 copies/mL
== END 2024-06-03 17:33 | disposition home or self-care (01) ==
PROVIDERS: Nurse Practitioner Family; Emergency Provider Emergency Medicine; PCP Nurse Practitioner Family
DX: B02.9 Zoster without complications (principal); Z21 Asymptomatic human immunodeficiency virus [HIV] infection status; I10 Essential (primary) hypertension
CPT/HCPCS: 36415; 80053; 81001; 85025; 85610; 85730; 86703; 87536; 99283

== ENCOUNTER → 2024-06-03 | Outpatient (BNVA) | payer MEDICAID, SELFPAY | END | disposition home or self-care (01) | PROVIDERS: PCP Nurse Practitioner Family; Referring Provider Nurse Practitioner Family; Visit Provider Nurse Practitioner Family | DX: B02.9 Zoster without complications (principal); B20 Human immunodeficiency virus [HIV] disease | CPT/HCPCS: 99213 ==

== ENCOUNTER → 2024-06-14 | Outpatient (BNVA) | payer MEDICAID, SELFPAY | END | disposition home or self-care (01) | PROVIDERS: PCP Nurse Practitioner Family; Referring Provider Nurse Practitioner Family; Visit Provider Nurse Practitioner Family | DX: Z76.89 Persons encountering health services in other specified circumstances (principal); I13.0 Hypertensive heart and chronic kidney disease with heart failure and stage 1 through stage 4 chronic kidney disease, or unspecified chronic kidney disease; N18.9 Chronic kidney disease, unspecified; I50.9 Heart failure, unspecified; B02.9 Zoster without complications; Z51.89 Encounter for other specified aftercare | CPT/HCPCS: 99215 ==

== ENCOUNTER → 2024-07-05 | Outpatient (BNVA) | payer MEDICAID, SELFPAY | END | disposition home or self-care (01) | PROVIDERS: PCP Nurse Practitioner Family; Referring Provider Nurse Practitioner Family; Visit Provider Nurse Practitioner Family | DX: Z00.01 Encounter for general adult medical examination with abnormal findings (principal); I10 Essential (primary) hypertension; I13.0 Hypertensive heart and chronic kidney disease with heart failure and stage 1 through stage 4 chronic kidney disease, or unspecified chronic kidney disease; N18.9 Chronic kidney disease, unspecified; I50.9 Heart failure, unspecified; B20 Human immunodeficiency virus [HIV] disease; Z11.3 Encounter for screening for infections with a predominantly sexual mode of transmission; F32.1 Major depressive disorder, single episode, moderate; Z13.220 Encounter for screening for lipoid disorders; F41.9 Anxiety disorder, unspecified; R19.7 Diarrhea, unspecified | CPT/HCPCS: 93005 ==

== ENCOUNTER → 2024-07-16 | Outpatient (BNVA) | payer MEDICAID, SELFPAY | END | disposition home or self-care (01) | PROVIDERS: PCP Nurse Practitioner Family; Referring Provider Nurse Practitioner Family; Visit Provider Nurse Practitioner Family | DX: Z71.2 Person consulting for explanation of examination or test findings (principal); I13.0 Hypertensive heart and chronic kidney disease with heart failure and stage 1 through stage 4 chronic kidney disease, or unspecified chronic kidney disease; N18.9 Chronic kidney disease, unspecified; I50.9 Heart failure, unspecified; R19.7 Diarrhea, unspecified; Z86.19 Personal history of other infectious and parasitic diseases; R73.03 Prediabetes; E55.9 Vitamin D deficiency, unspecified; R94.5 Abnormal results of liver function studies | CPT/HCPCS: 99213 ==

== ENCOUNTER → 2024-07-23 | Outpatient (BNVA) | payer MEDICAID, SELFPAY | END | disposition home or self-care (01) | PROVIDERS: PCP Internal Medicine; Referring Provider Internal Medicine; Visit Provider Internal Medicine | DX: R94.5 Abnormal results of liver function studies (principal); N18.32 Chronic kidney disease, stage 3b; E55.9 Vitamin D deficiency, unspecified; R73.03 Prediabetes; R97.20 Elevated prostate specific antigen [PSA]; R19.7 Diarrhea, unspecified; B20 Human immunodeficiency virus [HIV] disease; I50.9 Heart failure, unspecified; E87.21 Acute metabolic acidosis | CPT/HCPCS: 99204 ==

== ENCOUNTER → 2024-10-21 | Outpatient (BNVA) | payer MEDICAID, SELFPAY | END | disposition home or self-care (01) | PROVIDERS: PCP Nurse Practitioner Family; Referring Provider Nurse Practitioner Family; Visit Provider Nurse Practitioner Family | DX: Z21 Asymptomatic human immunodeficiency virus [HIV] infection status (principal); I13.0 Hypertensive heart and chronic kidney disease with heart failure and stage 1 through stage 4 chronic kidney disease, or unspecified chronic kidney disease; N18.32 Chronic kidney disease, stage 3b; I50.9 Heart failure, unspecified; R73.03 Prediabetes; R94.5 Abnormal results of liver function studies; R97.20 Elevated prostate specific antigen [PSA]; Z91.199 Patient's noncompliance with other medical treatment and regimen due to unspecified reason | CPT/HCPCS: 99214 ==

== ENCOUNTER → 2024-11-05 | Outpatient (BNVA) | payer MEDICAID, SELFPAY | END | disposition home or self-care (01) | PROVIDERS: PCP Internal Medicine; Referring Provider Internal Medicine; Visit Provider Internal Medicine | DX: N18.32 Chronic kidney disease, stage 3b (principal); R80.9 Proteinuria, unspecified; F32.A Depression, unspecified; N17.9 Acute kidney failure, unspecified; E87.20 Acidosis, unspecified; I13.0 Hypertensive heart and chronic kidney disease with heart failure and stage 1 through stage 4 chronic kidney disease, or unspecified chronic kidney disease; I50.9 Heart failure, unspecified; Z21 Asymptomatic human immunodeficiency virus [HIV] infection status; R19.7 Diarrhea, unspecified; R97.20 Elevated prostate specific antigen [PSA]; R73.03 Prediabetes; E55.9 Vitamin D deficiency, unspecified; R79.89 Other specified abnormal findings of blood chemistry | CPT/HCPCS: 99214 ==

== ENCOUNTER → 2024-11-15 | Outpatient (CLI) | payer MEDICAID, SELFPAY ==
--- NOTE | 2024-11-15 14:00 | XR_ITS ---
Examination: Retroperitoneal ultrasound, complete Technique: Multiple high resolution grayscale images of the retroperitoneum obtained, including kidneys and bladder. Exam date and time:November 07, 2024 1408 hours INDICATIONS: Stage III kidney disease on laboratory examination this month FINDINGS: Right kidney 9.4 cm renal cortex 1.7 cm Left kidney 8.8 cm cortex 1.6 cm Significant bilateral renal parenchymal scar formation. No hydronephrosis Contracted urinary bladder Prostate volume 47 cc no prostate nodules IMPRESSION: Small kidneys with bilateral renal cortical thinning Significant bilateral renal parenchymal scar formation.
== END | disposition home or self-care (01) ==
LOC: CDIM 13:47
PROVIDERS: PCP Internal Medicine; Referring Provider Internal Medicine; Visit Provider Internal Medicine
DX: N18.32 Chronic kidney disease, stage 3b (principal)
CPT/HCPCS: 76770

== ENCOUNTER → 2024-12-10 | Outpatient (BNVA) | payer MEDICAID, SELFPAY | END | disposition home or self-care (01) | PROVIDERS: PCP Nurse Practitioner Family; Referring Provider Nurse Practitioner Family; Visit Provider Nurse Practitioner Family | DX: I11.0 Hypertensive heart disease with heart failure (principal); I50.9 Heart failure, unspecified; F32.9 Major depressive disorder, single episode, unspecified; F41.9 Anxiety disorder, unspecified; N40.0 Benign prostatic hyperplasia without lower urinary tract symptoms | CPT/HCPCS: 99215 ==

== ENCOUNTER → 2024-12-30 | Outpatient (BNVA) | payer MEDICAID, SELFPAY | END | disposition home or self-care (01) | PROVIDERS: PCP Nurse Practitioner Family; Referring Provider Nurse Practitioner Family; Visit Provider Nurse Practitioner Family | DX: Z09 Encounter for follow-up examination after completed treatment for conditions other than malignant neoplasm (principal); F32.A Depression, unspecified; F41.9 Anxiety disorder, unspecified | CPT/HCPCS: 99213 ==